=== PATIENT | male | born 1945 | race Caucasian/White ===

== ENCOUNTER 2019-02-17 20:36 | Emergency (ER) | payer OTHER, SELFPAY ==
[2019-02-17] MEDS ORDERED: TETANUS & DIPHTHERIA TOX,ADULT 0.5 ML VIAL ONE (21:26)
--- NOTE | 2019-02-17 21:32 | EDPHYS ---
Physician Documentation [facility] Name: Cedrick Jenkins Age: 73 yrs Sex: Male : 1945 Arrival Date: 02/17/2019 Time: 20:41 Bed 12 Private MD: Unknown, Unknown ED Physician Mikie Seay HPI: 02/17 21:07 This 73 yrs old Male presents to ER via Ambulatory with complaints of Wrist rn Pain. 21:07 The patient or guardian reports injury, a puncture wound, catfish emery. Onset: The rn symptoms/episode began/occurred today. Modifying factors: The symptoms are alleviated by nothing, the symptoms are aggravated by nothing. Associated signs and symptoms: Pertinent negatives: cyanosis distally, decreased sensation distally, fever, nausea, numbness distally, tingling distally, vomiting. The patient has experienced a previous episode. Reports got poked by catfish emery DAMAGE INSIDE ADJUSTER, has happened once before, required removal of emery, doesn't think is any pieces in, removed emery himself, + radiation of pain up arm. . Historical: - Allergies: 20:51 erythromycin; aj1 - Home Meds: 20:51 clopidogrel oral oral [Active]; Aspirin Oral [Active]; atorvastatin oral oral [Active]; aj1 telmisartan oral oral [Active]; - PMHx: 20:51 Hypertension; CVA; Hyperlipidemia; aj1 - Immunization history:: Flu vaccine is up to date. - Social history:: Smoking status: Patient/guardian denies using tobacco. - Ebola Screening: : Patient denies travel to an Ebola-affected area in the 21 days before illness onset. - Family history:: not pertinent. - Hospitalizations: : No recent hospitalization is reported. ROS: 21:07 Constitutional: Negative for fever, chills, and weight loss, MS/Extremity: + left rn forearm puncture Exam: 21:07 Constitutional: This is a well developed, well nourished patient who is awake, alert, rn and in no acute distress. MS/ Extremity: Pulses equal, no cyanosis. Neurovascular intact. Full, normal range of motion. Equal circumference. + left volar mid-forearm with small puncture wound and localized swelling no visible or palpable foreign body identified. NO streaking. Vital Signs: 20:51 BP 156 / 88; Pulse 83; Resp 18; Temp 97.1; Pulse Ox 97% on R/A; Weight 97.52 kg (R); aj1 Height 5 ft. 8 in. (172.72 cm) (R); Pain 5/10; 20:51 Body Mass Index 32.69 (97.52 kg, 172.72 cm) aj1 MDM: 20:54 Patient medically screened. rn 21:30 Differential diagnosis: puncture wound. Data reviewed: vital signs, nurses notes, rn radiologic studies, plain films. Test interpretation: by ED physician or midlevel provider: plain radiologic studies, xray left forearm negative for medial forearm foreign body. Counseling: I had a detailed discussion with the patient and/or guardian regarding: the historical points, exam findings, and any diagnostic results supporting the discharge/admit diagnosis, radiology results, the need for outpatient follow up, to return to the emergency department if symptoms worsen or persist or if there are any questions or concerns that arise at home. Special discussion: I discussed with the patient/guardian in detail that at this point there is no indication for admission to the hospital. It is understood, however, that if the symptoms persist or worsen the patient needs to return immediately for re-evaluation. 02/17 20:57 Order name: XRAY Forearm LEFT rn Administered Medications: 21:24 Drug: Tetanus-Diphtheria Toxoid Adult 0.5 ml {Regional Clinical Director: [place]. Exp: aj1 10/02/2022. Lot #: [id number]. } Route: IM; Site: right deltoid; 22:10 Follow up: Response: No adverse reaction aj1 22:09 Drug: Doxycycline 100 mg Route: PO; aj1 22:09 Follow up: Response: No adverse reaction aj Disposition: 02/17/19 21:31 Discharged to Home. Impression: Puncture wound without foreign body of left forearm. - Condition is Stable. - Discharge Instructions: Puncture Wound. - Prescriptions for Doxycycline Monohydrate 100 mg Oral Tablet - take 1 tablet by ORAL route every 12 hours for 10 days; 20 tablet. - Medication Reconciliation Form, Thank You Letter, Antibiotic Education, Prescription Opioid Use form. - Follow up: Private Physician; When: As needed; Reason: Recheck today's complaints, Re-evaluation by your physician. - Problem is new. - Symptoms have improved. Signatures: Dispatcher [employer] Leslie Barraza RN RN aj1 Mikie Seay MD MD rnfa: (The following items were deleted from the chart) 21:38 20:54 Wrist Left 3 View+RAD.RAD.BRZ ordered. EDCO EDMS 22:10 21:31 02/17/2019 21:31 Discharged to Home. Impression: Puncture wound without foreign aj1 body of left forearm. Condition is Stable. Forms are Medication Reconciliation Form, Thank You Letter, Antibiotic Education, Prescription Opioid Use. Follow up: Private Physician; When: As needed; Reason: Recheck today's complaints, Re-evaluation by your physician. Problem is new. Symptoms have improved. rn
--- NOTE | 2019-02-17 21:32 | ER ---
Nurse's Notes [facility] Name: Cedrick Jenkins Age: 73 yrs Sex: Male : 1945 Arrival Date: 02/17/2019 Time: 20:41 Bed 12 Private MD: Unknown, Unknown Diagnosis: Puncture wound without foreign body of left forearm Presentation: 02/17 20:48 Presenting complaint: Patient states: " I was fishing in the surf and I had a catfish aj1 got me in the arm. I don't think the fin is still there". Transition of care: patient was not received from another setting of care. Onset of symptoms was February 17, 2019. Risk Assessment: Do you want to hurt yourself or someone else? Patient reports no desire to harm self or others. Initial Sepsis Screen: Does the patient meet any 2 criteria? No. Patient's initial sepsis screen is negative. Does the patient have a suspected source of infection? No. Patient's initial sepsis screen is negative. Care prior to arrival: None. 20:48 Method Of Arrival: Ambulatory aj 20:48 Acuity: VANE 4 aj1 Triage Assessment: 20:51 General: Appears in no apparent distress. comfortable, Behavior is calm, cooperative, aj1 appropriate for age. Pain: Complains of pain in palmar aspect of left forearm Pain currently is 5 out of 10 on a pain scale. EENT: No signs and/or symptoms were reported regarding the EENT system. Neuro: Level of Consciousness is awake, alert, obeys commands, Oriented to person, place, time, situation. Cardiovascular: Patient's skin is warm and dry. Respiratory: Airway is patent Respiratory effort is even, unlabored, Respiratory pattern is regular, symmetrical. GI: No signs and/or symptoms were reported involving the gastrointestinal system. : No signs and/or symptoms were reported regarding the genitourinary system. Derm: redness and swelling noted to left forearm. Musculoskeletal: No signs and/or symptoms reported regarding the musculoskeletal system. Circulation, motion, and sensation intact. Historical: - Allergies: 20:51 erythromycin; aj1 - Home Meds: 20:51 clopidogrel oral oral [Active]; Aspirin Oral [Active]; atorvastatin oral oral [Active]; aj1 telmisartan oral oral [Active]; - PMHx: 20:51 Hypertension; CVA; Hyperlipidemia; aj1 - Immunization history:: Flu vaccine is up to date. - Social history:: Smoking status: Patient/guardian denies using tobacco. - Ebola Screening: : Patient denies travel to an Ebola-affected area in the 21 days before illness onset. - Family history:: not pertinent. - Hospitalizations: : No recent hospitalization is reported. Screenin:53 Abuse screen: Denies threats or abuse. Denies injuries from another. Nutritional aj1 screening: No deficits noted. Tuberculosis screening: No symptoms or risk factors identified. Fall Risk None identified. Assessment: 20:53 Reassessment: see triage assessment. aj1 21:50 Reassessment: Patient appears in no apparent distress at this time. No changes from aj1 previously documented assessment. Patient and/or family updated on plan of care and expected duration. Pain level reassessed. Patient is alert, oriented x 3, equal unlabored respirations, skin warm/dry/pink. 22:10 Reassessment: Patient's wound was cleaned with HibaCleanse per patient request. aj1 Vital Signs: 20:51 BP 156 / 88; Pulse 83; Resp 18; Temp 97.1; Pulse Ox 97% on R/A; Weight 97.52 kg (R); aj1 Height 5 ft. 8 in. (172.72 cm) (R); Pain 5/10; 20:51 Body Mass Index 32.69 (97.52 kg, 172.72 cm) aj1 ED Course: 20:41 Patient arrived in ED. cl3 20:41 Unknown, Unknown is Private Physician. cl3 20:49 Triage completed. aj1 20:51 Arm band placed on Patient placed in an exam room. aj1 20:53 Patient has correct armband on for positive identification. aj1 20:53 No provider procedures requiring assistance completed. aj1 20:54 Mikie Seay MD is Attending Physician. rn 21:19 Leslie Charles RN is Primary Nurse. aj1 21:37 XRAY Forearm LEFT In Process Unspecified. EDMS 22:10 Patient did not have IV access during this emergency room visit. aj1 Administered Medications: 21:24 Drug: Tetanus-Diphtheria Toxoid Adult 0.5 ml {Slab Off Mill Tender: Ayla. Exp: aj1 10/02/2022. Lot #: [id number]. } Route: IM; Site: right deltoid; 22:10 Follow up: Response: No adverse reaction aj1 22:09 Drug: Doxycycline 100 mg Route: PO; aj1 22:09 Follow up: Response: No adverse reaction aj1 Outcome: 21:31 Discharge ordered by . rn 22:10 Discharged to home ambulatory. aj1 22:10 Condition: good 22:10 Discharge instructions given to patient, Instructed on discharge instructions, follow up and referral plans. medication usage, Demonstrated understanding of instructions, follow-up care, medications, Prescriptions given X 1. 22:10 Patient left the ED. aj1 Signatures: Dispatcher [employer] EDLeslie Henderson RN RN aj1 Mikie Seay MD MD rn Lewis, Charde cl3
[2019-02-17] MEDS ORDERED: DOXYCYCLINE 100 MG CAP PO ONE (22:06)
--- NOTE | 2019-02-18 08:36 | RAD REPORT ---
EXAM DESCRIPTION: RAD - Forearm Left - 02/17/2019 9:32 pm CLINICAL HISTORY: Arm pain, foreign body, possible catfish fin in the soft tissues COMPARISON: None. FINDINGS: Two-view left forearm examination was performed. Puncture site was not marked. No fracture, dislocation or periosteal reaction. No acute bone process seen. There is a small benign cystic structure in the lunate bone not of clinical consequence. No foreign bodies identifiable in the soft tissues. No air, calcification or other significant soft t issue finding seen. There is minimal edema in the subcutaneous fat evident posterior to the midshaft ulna on the lateral projection and on the medial margin midshaft ulna. IMPRESSION: Mild edema changes are present in the subcutaneous fatty tissues posterior and medial mi d forearm. No foreign body seen. No bone or joint acute finding.
== END 2019-02-17 22:10 | disposition home or self-care (01) ==
LOC: ER 20:36
DX: S51.832A Puncture wound without foreign body of left forearm, initial encounter (principal); W26.8XXA Contact with other sharp object(s), not elsewhere classified, initial encounter; Z23 Encounter for immunization; I10 Essential (primary) hypertension; E78.5 Hyperlipidemia, unspecified; Z86.73 Personal history of transient ischemic attack (TIA), and cerebral infarction without residual deficits
CPT/HCPCS: 90471; 90714; 99283